=== PATIENT | male | born 1950 | race Caucasian/White ===

== ENCOUNTER 2022-07-18 00:47 | Day surgery (SDC) | payer MEDICARE, SELFPAY ==
--- NOTE | 2022-07-14 13:17 | PC.NURSE ---
Report to the Outpatient Waiting Room, entrance under the green pavilion located off [facility], at time _1130 on date _07/18/22 . Planned Procedure Time: 1330 . Time changes happen often and if your time is changed the preop area will call you the afternoon before. - You and your visitor will be asked to self-screen and do not enter if you have any COVID symptoms. - We encourage only one visitor and NO visitors under age 16 are allowed at this time. Your visitor will receive communication by the phone number that is given day of service. - The patient visitor is requested to social distance or may leave the building when not with patient due to restrictions. - A mask is required within the hospital. Patients may have clear liquids (water, carbonated beverages, clear teas, apple juice) until 3 hours prior to surgery with a maximum of 20 ounces. - No food from midnight until time of surgery - Infants may have breast milk until 4 hours before surgery, formula 6 hours prior to surgery. - Children will be allowed to drink immediately following surgery. If applicable, please bring a bottle or sippy cup to assist with drinking. Juice, water, soda, and popsicles are readily available. For infants on formula, please bring formula the day of surgery. Pacifiers are allowed. Take the following medications with a SIP of water the morning of surgery: ____NONE Medications to discontinue per physician ALL VITAMINS AND SUPPLEMENTS 3 DAYS PRE OP Date to take last dose____07/14/22 Please no make-up, nail sami, hairspray, perfume, deodorant, or body powder the day of surgery. No jewelry (including any body piercings) or valuables the day of surgery, leave them at home. Please take a shower or bath the night before, or the morning of, surgery with an antibacterial soap. Wear comfortable, loose fitting clothing. Children are encouraged to wear pajamas. - Jewelry must be removed prior to entering the operating room. Rings and piercings that are not removed may be cut off. - The hospital will not accept responsibility for valuables. - Please leave all valuables, including medications, at home the day of surgery. If you are going home after surgery, a licensed stock driver must drive you home. - NO public transportation without another adult. - We recommend that an adult stay with you for 24 hours following discharge. - We also recommend that you do not drive, make important decision, drink alcoholic beverages, or take any drugs that were not prescribed by your health care provider for at least 24 hours after your discharge time. For Pediatric surgeries, we recommend two adults accompany the child home. Follow any additional instructions given to you from your surgeon. If you or anyone in your household have experienced Covid symptoms in the past week, please notify your surgeon or the nurse liaison at the phone number below for possible testing. Telephone instructions given to _PATIENT AND FRANTZ and asked if any additional questions and then verbalized understanding. Patient advised to call surgeon office or pre surgery nurse liaison [phone] if any additional questions.
[2022-07-14 13:39] VITALS: BMI 27.6
--- NOTE | 2022-07-17 12:10 | P.PNAN_ITS ---
Anes - Initial Pre Proc Eval Procedure: Operation Date: 07/18/22 13:30 Proposed Procedures p Cystoscopy, Left Ureteroscopy, Left Stone Extraction, Left Stent Placement, Left Retrograde Pyelogram, Possible Holmium Laser - Seamus Dupree MD Date/Time: 07/17/22 12:10 Surgeon: Seamus Dupree MD Pre Op Diagnosis: Lt Ureteral Stone, Renal Stone Patient Data Age: 72 Gender: M Height: 1.88 m Weight: 97.55 kg Allergies Allergy/AdvReac Type Severity Reaction Status Date / Time No Known Allergies Allergy Verified 07/18/22 12:18 Home Medications Medication Instructions Recorded Confirmed Type azelastine 137 mcg (0.1 %) nasal 2 spray intranasal DAILY 07/14/22 07/18/22 History spray aerosol fexofenadine 180 mg tablet 180 mg PO DAILY 07/14/22 07/18/22 History (Abby Allergy) multivitamin 1 tablet PO DAILY 07/14/22 07/18/22 History simvastatin 10 mg tablet 10 mg PO DAILY 07/14/22 07/18/22 History tamsulosin 0.4 mg capsule 0.4 mg PO DAILY 07/14/22 07/18/22 History vit A 7,160 unit-vit C 113 mg-vit 1 tablet PO DAILY 07/14/22 07/18/22 History E 100 lswc-fwoo-nwkcri tablet ibuprofen 600 mg tablet 600 mg PO Q6H PRN Pain 07/18/22 07/18/22 History Patient hx anesthesia problems: none Family hx anesthesia problems: none Results Review: All pre-operative results and documents have been reviewed as part of the pre- operative evaluation. [facility] Past Medical History Medical History (Updated 07/17/22 @ 12:11 by Stiven Ferris MD) BPH (benign prostatic hyperplasia) Hyperlipidemia JEAN-CLAUDE (obstructive sleep apnea) Overweight (BMI 25.0-29.9) Social History Social History Tobacco type: cigars Additional smoking assessment comments: CIGARS ONE EVERY TWO DAYS X 20 YRS Substance use type: other Other substance usage details: CBD GUMMIE FOR INSOMNIA Living arrangements: with family Spiritual care concerns: No Anes - Eval Final PreProcedure Day of Procedure 07/17/22 12:10 Patient weight: overweight Heart: regular rate and rhythm Lungs: clear to auscultation and normal air movement Airway: Mallampati scale class II Neurological: alert and oriented Last oral intake: >/= 8 hours ASA classification: II Emergent: no Anesthetic plan: proceed Anesthesia type and monitoring: general LMA Results Review: All pre-operative results and documents have been reviewed as part of the pre- operative evaluation. Informed Consent: The patient's anesthetic plan and its attendant risks and benefits were discussed with the patient/family/POA. Questions were solicited and answers provided to the satisfaction of the patient/family/POA.
[2022-07-18] VITALS (8 sets, daily range): BP systolic 140–187; BP diastolic 80–104; PULSE 57–65; RESP 12–20; TEMP 36.3–37.2; O2SAT 97–100
--- NOTE | ~2022-07-18 | XR_ITS ---
EXAMINATION: XR retrograde pyelo w/stent LT DATE: 07/18/2022 15:01 INDICATION: Left internal ureteral stent placement TECHNIQUE: Fluoroscopic images from a left internal ureteral stent placement are submitted for review . 15 seconds of fluoroscopy time. 3 fluoroscopic images. FINDINGS: There is a left double-J internal ureteral stent projecting in expected position, with proximal [place] loop at the level of the renal pelvis and distal loop in the pelvis within the bladder lumen. IMPRESSION: 1. Left internal ureteral stent placement. Please refer to real-time procedural findings for detail s. Reviewed, dictated and finalized at location B. IMPRESSION: 1. Left internal ureteral stent placement. Please refer to real-time procedur al findings for details.
[2022-07-18] MEDS: LACTATED RINGERS 1,000 ML 30 ML IV CONT (12:23)
--- NOTE | 2022-07-18 12:30 | SUR.PREOP ---
pt informed delay in procedure
--- NOTE | 2022-07-18 13:29 | WPDHPUPDATE1 ---
History and Physical Update Update Date/Time: 07/18/22 13:29 History and Physical has been reviewed, including an updated exam of the patient. There are NO changes in the patient's condition. Risks, benefits, and alternatives have been discussed and questions answered. Patient agrees to proceed with procedure. Proceed with cystoscopy, left retrograde pyelogram, left ureteroscopy with stone extraction, possible laser, stent placement
[2022-07-18] MEDS: ceFAZolin 2 GM/D5W 50 ML 2 GM/50 ML BAG IVPB (14:31)
[2022-07-18] MEDS: LIDOCAINE HCL 2% GEL UROJET 10 ML PKG MUCOUS MEM ×2 (14:36→14:50)
--- NOTE | 2022-07-18 14:59 | P.OP_ITS ---
Procedure Note - Detailed Date of Procedure 07/18/22 Pre-op Diagnosis Lt Ureteral Stone, Post-op Diagnosis Same Procedure Performed Cystoscopy, left retrograde pyelogram, left ureteroscopy with stone extraction, left ureteral stent placement 4.8 Malian contour Surgeon Seamus Dupree MD Anesthesia General Description of Procedure Patient was taken to the operative suite correctly identified. Once anesthesia was obtained was placed in dorsal lithotomy position and prepped and draped usual sterile fashion. Twenty-two Malian scope was inserted the bladder there were no tumors noted. He does have slightly enlarged lateral lobes and a small median lobe. The bladder is without any evidence of tumors. The left orifice was edematous. We were able to manipulate a wire past stone which was in the intramural ureter. We dilated the orifice with an 8/10 dilator. Rigid ureteral scope was then inserted. The stone was visualized and using an escape basket was retrieved in 1 piece. This was sent for analysis. Reinspection revealed no residual ureteral stones. Pyelogram was then performed to confirm placement of the stent. 4.8 Malian contour stent was then placed with the proximal end coiled in the renal pelvis and the distal end in the bladder. Bladder was drained. 2% viscous lidocaine was inserted into the urethra patient is taken recovery stable condition. He will follow up in a week to 2 weeks for stent removal. He will call for that appointment. Estimated Blood Loss 0 Drains Yes Packing No Pathology Yes Complications No immediate complications Condition Stable Disposition PACU
[2022-07-18] MEDS: hydrALAZINE HCL 20 MG/ML VIAL 5 MG IV PUSH (15:28)
--- NOTE | 2022-07-18 15:36 | SUR.PHASEI ---
1535: Simple mask removed.
--- NOTE | 2022-07-18 15:56 | SUR.PHASEI ---
Dr. Ferris aware of elevated BP. No further treatment at this time.
== END 2022-07-18 16:35 | disposition home or self-care (01) ==
PROVIDERS: PCP Family Medicine; Visit Provider Urology
PROC: (CPT 52352; principal; 2022-07-18 13:30)
DX: N20.1 Calculus of ureter (principal); N40.0 Benign prostatic hyperplasia without lower urinary tract symptoms; E78.5 Hyperlipidemia, unspecified; G47.33 Obstructive sleep apnea (adult) (pediatric); F17.290 Nicotine dependence, other tobacco product, uncomplicated; F12.90 Cannabis use, unspecified, uncomplicated
CPT/HCPCS: 52332; 52352; 74420; 82365; 88300; A9270; C1758; C1769; C2617; J0360; J0690; J2405; J2704; J3010; J7120; Q9966